=== PATIENT | male | born 1945 | race Caucasian/White ===

== ENCOUNTER 2016-12-15 15:41 | Emergency (ER) | payer OTHER ==
[~2016-12-15 15:41] MED LIST: ACET-171 PO; ALBU8.5H4 INHALATION; CARB1TAB17 PO; CARB1TAB37 PO; DOCU250C2 PO; ETOD400T PO; MOME0.132 IH; TIMO1DRO4 OP; TIMO5DRO26 OP; [UNRECOGNIZED DRUG - CODE] PO
--- NOTE | 2016-12-15 15:46 | ED.REPORT ---
HPI-Trauma Minor / Fall Date of Service Dec 15, 2016 ED Provider: Jeff Naranjo DO The patient is a 71 year old male with history of Parkinson's disease and dementia, who presents to the emergency department by EMS after he had a ground level fall prior to arrival. Medics report that this is his 3rd fall today. Family requested workup. The patient has a laceration and complains of some pain to his head. It is unclear if he lost consciousness. He has also noticed a mild cough. He denies chest pain, shortness of breath, abdominal pain, nausea, vomiting, fever or chills. Nursing Notes Stated Complaint: GLF Chief Complaint: Head, Face, Neck Trauma Nursing Notes Reviewed: Yes Allergies: Coded Allergies: zolpidem (Verified Allergy, Intermediate, 12/15/16) Scheduled Carbidopa/Levodopa 10-100 mg (Carbidopa/Levodopa 10-100 mg) 1 Each Tablet 0.5 TABLET PO q2am Carbidopa/Levodopa 25-250 mg (Carbidopa/Levodopa 25-250 mg) 1 Each Tablet 1 TABLET PO QID 6am,11am,4pm, 9pm Carbidopa/Levodopa ER 50-200 mg (Carbidopa/Levodopa ER 50-200 mg) 1 Each Tablet 1 TABLET PO q9pm Etodolac (Etodolac) 400 Mg Tablet 400 MG PO BID Mometasone Furoate (Asmanex) 110 Mcg Aer.pow.ba 2 PUFFS IH BID Timolol (Betimol) 5 Ml Drops 1 DROP OP DAILY Scheduled PRN Acetaminophen (Acetaminophen) 500 Mg Tablet 500 MG PO Q4H PRN PRN For Pain Albuterol HFA (Albuterol HFA) 8.5 Gm Hfa.aer.ad 2 PUFF INHALATION Q4H PRN PRN For Shortness of Breath Docusate Sodium (Docusate Sodium) 250 Mg Capsule 250 MG PO BID PRN PRN For Constipation Miscellaneous Medications Timolol Maleate/Pf (Timoptic 0.5% Ocudose Drop) 1 Each Droperette 1 EACH OP General Time Seen by MD: 15:43 Chief Complaint Fall Hx Obtained From: Patient, Other family..., EMS Arrived By: Ambulance Onset Occurred: Just prior to arrival Symptom Duration: Since onset Caused by: Fall on ground Location: Face Head Quality: Painful Severity: Current: Mild Severity: Maximum: Mild Recent Healthcare: No recent doctor visit, No recent hospitalization Similar Sx Previous: Yes Past Medical History Past Medical History Parkinson's disease Dementia Reports: COPD Past Surgical History Deep brain nerve stimulator Pacemaker Family History Noncontributory Smoking History Former Smoker Social History Alcohol Use: In recovery Drug Use: Denies drug use Other Social History: Good social support, Lives in [facility], Local resident Occupation Retired Ambulatory Status Walker Review of Systems Review of Systems Note: +facial/head pain Constitutional: Denies: Chills, Fever Respiratory: Reports: Non-productive cough, Denies: Shortness of breath Complete sys rev & neg: except as marked. Cardiovascular: Denies: Chest pain GI: Denies: Abdominal pain, Nausea, Vomiting Physical Exam Initial Vital Signs Vital Signs (First) Date Time Temp Pulse Resp B/P Pulse Ox O2 Delivery O2 Flow Rate FiO2 12/15/16 15:47 36.8 83 25 175/86 100 Room Air Initial VS: Reviewed ENT: Mucous membranes moist, Conjunctiva normal, No scleral icterus Respiratory: Breath sounds normal, Clear to auscultation, No respiratory distress Cardiovascular: Regular rate & rhythm, Heart sounds normal, Intact distal pulses Abdomen / GI: Soft, Non-tender, No guarding, No rebound, No distention Lymphatic: No lymphadenopathy Extremities: Vascular intact, Neuro intact, No swelling, No tenderness Skin: Warm, Dry, No cyanosis Psychiatric: Mood/affect normal, Behavior normal, Normal thought content General/Constitutional: Awake Alertness: Positive: Confused Neck: Atraumatic, Supple, Full range of motion, No swelling, Non-tender, No midline vertebral tend Head / Eyes: Normocephalic, PERRL, EOMI 1 cm midline laceration that has steri strips across it on the top of his head. Neurologic: No motor deficits, No sensory deficits Mental Status: Positive: Confused No focal neurologic deficits. Interpretation & Diagnostics Lab Results Interpretation Result Diagram: 12/15/168 12/15/16 165 Test 12/15/16 16:00 12/15/16 16:15 12/15/16 16:58 Urine Color Yellow (YELLOW) Urine Appearance Clear (CLEAR,HAZY) Urine pH 6.0 (5.0-8.0) Urine Specific Sturgeon 1.010 (1.003-1.035) Urine Protein Negativemg/dL (NEG,TRACE) Urine Glucose (UA) Negativemg/dL (NEGATIVE) Urine Ketones Negativemg/dL (NEGATIVE) Urine Occult Blood Negative (NEGATIVE) Urine Nitrite Negative (NEGATIVE) Urine Bilirubin Negative (NEGATIVE) Urine Urobilinogen Normalmg/dL (NORMAL) Urine Leukocyte Esterase Negative (NEGATIVE) Urine RBC 0-2/hpf (0-2) Urine WBC 0-5/hpf (0-5) Urine Epithelial Cells Occasional/hpf (NONE-MOD) Urine Crystals None seen (NONE SEEN) Urine Bacteria None/hpf (NONE-FEW) Urine Hyaline Casts None/lpf (NONE) Urine Granular Casts None seen (NONE SEEN) Urine Waxy Casts None seen (NONE SEEN) Urine Red Blood Cell Casts None seen (NONE SEEN) Urine White Blood Cell Casts None seen (NONE SEEN) Urine Mucus None seen (None Seen) Urine Trichomonas None seen (NONE SEEN) Urine Yeast None (NONE SEEN) Urinalysis Comment None Urine Culture Reflexed Not indicated Hold Urine Received (Received) White Blood Count 11.1th/mm3 (3.8-10.1) Red Blood Count 4.67mil/mm3 (4.40-5.80) Hemoglobin 14.1g/dL (13.8-17.2) Hematocrit 40.9% (41.0-50.0) Mean Corpuscular Volume 87.6fL (81-100) Mean Corpuscular Hemoglobin 30.2pg (27.0-35.0) Mean Corpuscular Hemoglobin Concent 34.5% (32.0-37.0) Red Cell Distribution Width 13.1% (12.3-15.4) Platelet Count 191bil/L (150-400) Neutrophils (%) (Auto) 66.3% (40-74) Lymphocytes (%) (Auto) 13.8% (14-46) Monocytes (%) (Auto) 11.9% (4-12) Eosinophils (%) (Auto) 7.5% (0-5) Basophils (%) (Auto) 0.3% (0-3) Sodium Level 140mEq/L (134-144) Potassium Level 3.7mEq/L (3.5-5.2) Chloride Level 101mEq/L (97-108) Carbon Dioxide Level 25mmol/L (18-29) Blood Urea Nitrogen 13mg/dL (8-27) Creatinine 0.70mg/dL (0.76-1.27) Estimat Glomerular Filtration Rate 118mL/min (>59) Glucose Level 108mg/dL (60-99) Calcium Level 8.7mg/dL (8.5-10.1) Total Bilirubin 0.5mg/dL (0.0-1.2) Aspartate Amino Transf (AST/SGOT) 13U/L (0-50) Alanine Aminotransferase (ALT/SGPT) 5U/L (0-44) Alkaline Phosphatase 93U/L (25-160) Troponin T < 0.010ug/L (0.0-0.011) Pro-B-Type Natriuretic Peptide 171.4pg/mL (0-376) Total Protein 6.6g/dL (6.4-8.4) Albumin 3.8g/dL (3.4-5.0) Hold Wolfe Top Tube Received (Received) ECG Interpretation ECG Interpretation: Sinus rhythm with a rate of 60 LBBB which is new compared to EKG taken on 07/26/2015 Time: 17:16 Interpreted by: ED physician X-Ray Chest Interpretation Chest Xray Interpretation: IMPRESSION: 1. Question of calcification versus coin lesion versus small infiltrate in the region of the right first costochondral junction. Dictated by: Dayne Alex M.D. on 12/15/2016 at 17:19 Interpretation / Wet Read by: Interpret - Radiologist CT Head Interpretation MPRESSION: 1. No acute intracranial process. 2. Moderate atrophy and chronic microvascular ischemic changes. 3. Prominent rose sinus disease as above. Dictated by: Shasha Kingsley M.D. on 12/15/2016 at 16:47 Study: Head CT no contrast Interpretation / Wet Read by: Interpret - Radiologist Re-Eval/Medical Decision Med Decision/Clinical Course Currently undergoing evaluation for falls and possible lung mass, care transferred to Dr. Roberson for disposition. Source of Hx: Old records, EMS Counseled Regarding: Diagnosis, Lab results Discharge & Departure Shift Change Sign-Out Patient Care Transferred: Yes Discussed Complaint(s): Yes Laboratory Evaluation: Lab evaluation discussed Imaging Studies: Done, await radiologist Response to Therapy: Discussed Impression: Primary Impression: Fall Encounter type: initial encounter Qualified Code: W19.XXXA - Unspecified fall, initial encounter Discharge Condition All VS Reviewed: Yes Condition: Stable [facility] Care Transferred to: Dr. Roberson Care Transferred at: 18:30 Scribe Attestation Portions of this note were transcribed by Saritha Yap. I, Dr. Naranjo personally performed the history, physical exam and medical decision-making; I reviewed and confirmed the accuracy of the information in the transcribed note. Signed by: Cynthia Shannon, 12/15/2016 and 1832. copies to: [facility] Jeff Naranjo DO Dec 15, 2016 15:46 Saritha Yap Dec 15, 2016 15:49
[2016-12-15 15:47] VITALS: BP 175/86; PULSE 83; RESP 25; O2SAT 100
[2016-12-15] MEDS ORDERED: 0.9% Sodium Chloride 1,000 ML IV SCH (16:20)
[2016-12-15] MEDS ORDERED: 0.9% Sodium Chloride 1,000 ML IV ONE (16:20)
[2016-12-15 16:37] LABS: APPEARANCE,URINE CLEAR (CLEAR,HAZY); COLOR,URINE YELLOW (YELLOW)
[2016-12-15 16:38] LABS: OCCULT BLOOD,URINE NEGATIVE (NEGATIVE); UROBILINOGEN,URINE NORMAL (NORMAL)
[2016-12-15 17:12] LABS: BASOPHILS % (AUTO) 0.3 % (0-3); EOSINOPHILS % (AUTO) 7.5 % (0-5); MONOCYTES % (AUTO) 11.9 % (4-12); Mean Corpuscular Hemoglobin 30.2 pg (27.0-35.0); Mean Corpuscular Volume 87.6 fL (81-100); NEUTROPHILS % (AUTO) 66.3 % (40-74); Platelet Count 191 bil/L (150-400)
--- NOTE | 2016-12-15 17:12 | DRSVH ---
PROCEDURE: CT BRAIN WITHOUT CONTRAST ([id number]) INDICATIONS: recurrent falls TECHNIQUE: Noncontrast 4.5 mm thick angled axial sections acquired from the foramen magnum to the vertex, with c oronal reformats. COMPARISON: [facility], CT, CT BRAIN WO CON, 08/08/2015, 17:41. FINDINGS: Image quality: Excellent. CSF spaces: Basal cisterns are patent. No extra-axial fluid collections. The ventricles are symmet yasmeen in size and shape. Brain: No intracranial bleeds or masses. There is cerebral volume loss for age, with resultant vent ricular and sulcal prominence. There are periventricular and deep white matter chronic small vessel ischemic changes. There is intracranial internal carotid artery atherosclerosis. Metallic streak ar tifact is present from intracranial electrodes, terminating at the cerebellar peduncles. They are ove rall unchanged. Skull and face: Calvarium and visualized facial bones appear intact, without suspicious lesions. Sinuses: There is complete opacification of the left maxillary sinus with near-complete opacification of the ethmoid and right maxillary sinus. Mild mucosal thickening is present within the visualized f rontal and sphenoid sinuses. IMPRESSION: 1. No acute intracranial process. 2. Moderate atrophy and chronic microvascular ischemic changes. 3. Prominent rose sinus disease as above. Dictated by: Shasha Kingsley M.D. on 12/15/2016 at 16:47 Approved by: Shasha Kingsley M.D. on 12/15/2016 at 16:49
--- NOTE | 2016-12-15 17:23 | DRSVH ---
PROCEDURE: X-RAY CHEST ONE VIEW, PORTABLE ([id number]) INDICATIONS: cough TECHNIQUE: One view of the chest was acquired. COMPARISON: [facility], CR, CHEST 1VW (PORTABLE), 07/06/2014, 14:57. [facility], CR, CHEST 2VW, 10/17/2014, 11:22. FINDINGS: Surgical changes and devices: A pacer stimulator type device is present in the left upper chest exten ding up into the neck. cardiac monitor leads are seen over the chest. Lungs and pleura: No pleural effusions or pneumothorax. There is possible but unlikely subtle infilt rate over the first costal chondral junction on the right. This is more likely calcification but as s eems slightly more prominent than in 2014. Less likely would be an overlying pulmonary nodule. Lungs are otherwise clear. Mediastinum: Mediastinal contours appear normal. Heart size is normal. Bones and chest wall: No suspicious bony lesions. Overlying soft tissues appear unremarkable. IMPRESSION: 1. Question of calcification versus coin lesion versus small infiltrate in the region of the right f irst costochondral junction. Dictated by: Dayne Alex M.D. on 12/15/2016 at 17:19 Approved by: Dayne Alex M.D. on 12/15/2016 at 17:22
[2016-12-15 17:34] VITALS: BP 161/69; PULSE 95; RESP 16; O2SAT 100
[2016-12-15 17:55] LABS: TROPONIN T < 0.010 ug/L (0.0-0.011)
--- NOTE | 2016-12-15 19:03 | DRSVH ---
PROCEDURE: CT CHEST WITHOUT CONTRAST ([id number]) INDICATIONS: lung nodule TECHNIQUE: Noncontrast 5 mm thick sections acquired from the pulmonary apices to the posterior costophrenic angl es. 7 mm thick coronal and sagittal MIP reformats were then acquired. For radiation dose reduction, the following was used: automated exposure control, adjustment of mA and/or kV according to patient size. COMPARISON: [facility], CR, XR CHEST 1VW (PORTABLE), 12/15/2016, 16:55. FINDINGS: Image quality: Excellent. Lungs and pleura: No acute air space opacities. No pleural effusions or pneumothorax. Central and peripheral airways are patent and normal in caliber. The questioned density at the right lung apex i s indeed calcified cartilage. However there is a 7 mm nodule in the lung not seen on the chest x-ray in the right upper lobe anteriorly and inferiorly. There is also a 3 mm nodule posterosuperiorly on t he right. Mediastinum: Heart size is normal. No pericardial effusion. No mediastinal adenopathy by size crit eria. Thoracic aorta and central pulmonary arteries are normal in size. Esophagus is normal in ryan sunil. No hiatal hernia. Bones and chest wall: No suspicious bony lesions. No vertebral body compression fractures. No axil bhumi or supraclavicular adenopathy by size criteria. Abdomen: Visualized upper abdominal solid organs and bowel loops appear normal in the absence of con trast. IMPRESSION: Question nodule on chest x-ray is from calcification of the first rib on the right. There is however a 7 mm nodule in the right upper lobe. Followup of this is suggested based upon the patient's risk factor that would be smoking history. Fleischner Society criteria for SOLID lung nodul e followup. Nodule size (mm)Low-risk patientHigh-risk [id number] follow-up neededFollow-up at 12 mo; if no mendenhall e, no further follow-up>[id number] CT at 12 mo; if no change, no further follow-up needed.Initial f ollow-up CT at 6-12 mo, then 18-24 mo if no change. >6-8Initial follow-up CT at 6-12 mo, then 18-24 mo if no change. Initial follow-up CT at 3-6 mo, then 9-12 mo and 24 mo if no change. >8Follow-up CT at 3, 9, 24 mo. Or PET and/or biopsy.Same as for low-risk pts. Dictated by: Dayne Alex M.D. on 12/15/2016 at 18:58 Approved by: Dayne Alex M.D. on 12/15/2016 at 19:02
[2016-12-15 20:43] VITALS: BP 167/90; PULSE 70; RESP 18; O2SAT 98
[2016-12-15 20:49] VITALS: BP 167/90; PULSE 70; RESP 18; O2SAT 98
== END 2016-12-15 20:51 | disposition home or self-care (01) ==
LOC: SED 15:41
DX: S01.91XA Laceration without foreign body of unspecified part of head, initial encounter (principal); W18.30XA Fall on same level, unspecified, initial encounter; Y93.89 Activity, other specified; Y92.129 Unspecified place in nursing home as the place of occurrence of the external cause; Y99.8 Other external cause status; G20 Parkinson's disease; F03.90 Unspecified dementia, unspecified severity, without behavioral disturbance, psychotic disturbance, mood disturbance, and anxiety; Z87.891 Personal history of nicotine dependence; Z88.8 Allergy status to other drugs, medicaments and biological substances
CPT/HCPCS: 36415; 70450; 71010; 71250; 80053; 81000; 83880; 84484; 85025; 93005; 99285; J7030